=== PATIENT | female | born 1975 | race American Indian/Alaskan Native ===

== ENCOUNTER 2016-12-20 05:14 | Observation (INO) | payer BC ==
[2016-12-17 08:42] VITALS: BMI 28.8
[2016-12-20] MEDS ORDERED: cefOXitin IV 2 gm in Dextrose 2 GM/50 ML BAG IVPB ONE (07:57)
[2016-12-20] MEDS ORDERED: Methylene Blue 10 mg/mL(10ml) IV ONE (08:26)
[2016-12-20] MEDS ORDERED: Vasopressin 20 Units/ml Inj ONE (08:26)
[2016-12-20] MEDS ORDERED: Midazolam 2 MG/2 ML VIAL ONE (08:38)
[2016-12-20] MEDS ORDERED: Propofol 10 mg/ml Inj (20 ML) ONE (08:38)
[2016-12-20] MEDS ORDERED: ePHEDrine 50 mg/ml Inj ONE (09:44)
[2016-12-20] MEDS ORDERED: Clindamycin 2% Vaginal Cream(40 gm) ONE (09:45)
[2016-12-20] MEDS ORDERED: Labetalol 25mg/5ml Syringe IVP PRN (10:49)
[2016-12-20] MEDS: HYDROmorphone 0.5 mg/0.5 ml ISec IVP PRN ×4 (10:55→12:29)
[2016-12-20] MEDS ORDERED: HYDROmorphone 0.5 mg/0.5 ml ISec ONE (10:55)
--- NOTE | 2016-12-20 11:05 | PCM.SURG1 ---
Surgeon's Initial Post Op Note - Surgeon's Notes Surgeon: Dr Negron Gold Reclaimer: Dr ashley Type of Anesthesia: General LMA Anesthesia Administered By: Dr. Whatley Pre-Operative Diagnosis: 41 yo with Cystocele grade III, Rectocele gradeII Operative Findings: cystocele grade III/ rectocele grade II Post-Operative Diagnosis: Same as above Operation Performed: Anterior Colporrhaphy/ posterior Colporrhaphy/ cystoscopy Specimen/Specimens Removed: vesicavaginal fascia and rectovaginal fascia Estimated Blood Loss: EBL {In ML}: 20 Blood Products Given: N/A Drains Used: No Drains Post-Op Condition: Good Date of Surgery/Procedure: 12/20/16 Time of Surgery/Procedure: 11:06
[2016-12-20] MEDS ORDERED: Oxycodone/Acetaminophen 5/325 mg Tab PO PRN (12:03)
[2016-12-20] MEDS ORDERED: DiphenhydrAMINE 50 mg/ml Inj IVP ONE (12:15)
[2016-12-20] MEDS: Oxycodone/Acetaminophen 5/325 mg Tab PO PRN ×2 (16:05→22:24)
--- NOTE | 2016-12-20 19:55 | OP ---
PROCEDURE DATE: 12/20/2016 PREOPERATIVE DIAGNOSIS: A 41-year-old female with symptomatic cystocele grade 3 as well as a rectocele, grade 2. POSTOPERATIVE DIAGNOSIS: A 41-year-old female with symptomatic cystocele grade 3 as well as a rectocele, grade 2. PROCEDURE: Anterior colporrhaphy, posterior colporrhaphy as well as cystoscopy. SURGEON: Anna Negron MD R&D LAB TECHNICIAN: Chong Sepulveda MD TYPE OF ANESTHESIA: General LMA ANESTHESIA ADMINISTERED BY: Lo Feliciano MD ESTIMATED BLOOD LOSS: Approximately 20 mL. DESCRIPTION OF PROCEDURE: The patient was taken to the operating room. Prior to that she was informed of the risk factors, benefits, and alternative procedures. She was also informed risks factors that included reoccurrence of the cystocele, rectocele, dyspareunia, infection, bleeding, damages to surrounding organs and tissues as well as well as vesicovaginal fistula, rectovaginal fistula, possible need of re-surgery in the path as well as blood transfusion. All questions were answered and an informed consent was obtained. Once an informed consent was obtained, she was then taken to the operating room. She was placed under adequate anesthesia and placed in dorsal lithotomy position. An examination revealed the widening introitus with a third degree cystourethrocele as well as a rectocele,which was second degree. A rectovaginal confirmation was performed. After appropriate prep, the patient was draped in a normal sterile fashion. A weighted speculum was placed in the vagina and in that particular instance, an Allis clamp was basically placed and grabbing the vesicovaginal muscular juncture, the vaginal mucosa was then grasped with the Allis and intervening tissue was excised. The vagina was then opened in the midline to less than a centimeter of the distal urethral meatus. The bladder was then sharply dissected free from the underlying vaginal mucosa. The pubic vesicular cervical fascia was identified and initial stitches of the uterovesical angle was placed using 2-0 Vicryl in a transverse position to the fascial plane. The remainder with Vicryl. The redundant vaginal tissue was excised and the vagina was closed and divided with simple and [id number] 0-Vicryl. The bladder was then retracted superiorly and the hymenal ring was grasped. At 4 o'clock and 8 o'clock posterior, a triangle incision was made to less than a centimeter of the anus. The intervening tissue was excised. The vagina was then opened in the midline too within a cm of the cervix and anchoring suture was placed superiorly. The perineal body was then freed and the rectum was freed from the underlying vagina. Three perineal sutures were placed at this point using 0-Vicryl eventually reapproximation. The perirectal fascia was then transversely sutured in the midline with several interrupted 0-Vicryl for support. Redundant vaginal mucosa was excised and the vagina was closed in the midline in simple fashion with 0-Vicryl grasping the fascia. The peritoneal suture was then tied and the remaining of the perineal body was re-approximated with several interrupted 2-0 Vicryl. Rectal exam was negative. Bleeding ports were noted anteriorly, which were sutured transversely with 0-Vicryl. In that particular instance, the Amador catheter was then removed where a 70 degree cystoscopy was then performed. The dome of the bladder was identified and noted no injury as well as the urethral orifice was identified, which was patent. Upon completing, the cystoscope was then removed, the Amador catheter was then placed, vaginal packing was then placed. The patient tolerated the procedure well. Instruments and lap counts were correct x2. The patient was then taken to the recovery room in stable condition. Anna Negron MD
[2016-12-21 00:20] VITALS: O2SAT 98
[2016-12-21 08:03] VITALS: BP 150/92; PULSE 71; RESP 18; TEMP 98.2
[2016-12-21] MEDS: Oxycodone/Acetaminophen 5/325 mg Tab PO PRN (08:35)
[2016-12-21] MEDS ORDERED: Influenza Vaccine 60 mcg/0.5 mL SYR (4YR UP) IM ONE (10:00)
--- NOTE | 2016-12-22 22:56 | CARD ---
APPROVED REPORT EKG Measurement Heart [id number] <Conclusion> Normal sinus rhythm Minimal voltage criteria for LVH, may be normal variant Nonspecific ST abnormality Abnormal ECG
== END 2016-12-21 13:30 | disposition home or self-care (01) ==
LOC: C.SDS 05:14 → C.4M 12:00
PROVIDERS: ADMIT Obstetrics & Gynecology; ATTEND Obstetrics & Gynecology
DX: N81.0 Urethrocele (principal); N81.6 Rectocele; N81.10 Cystocele, unspecified
CPT/HCPCS: 36415; 57240; 57250; 86850; 86900; 88305; 90674; 93005; G0008; G0378; J0694; J1170; J1200; J2250; J2704; J3010